=== PATIENT | female | born 1955 | race Caucasian/White ===

== ENCOUNTER 2022-02-06 08:50 | Emergency (ER) | payer OTHER ==
[2022-02-06] MEDS ORDERED: Ibuprofen 200 MG TAB ONE (09:36)
== END 2022-02-06 09:56 | disposition home or self-care (01) ==
LOC: BURERS 08:50
DX: S29.011A Strain of muscle and tendon of front wall of thorax, initial encounter (principal); S21.101A Unspecified open wound of right front wall of thorax without penetration into thoracic cavity, initial encounter; I10 Essential (primary) hypertension; E78.5 Hyperlipidemia, unspecified; E03.9 Hypothyroidism, unspecified; M32.9 Systemic lupus erythematosus, unspecified; J43.9 Emphysema, unspecified; X50.9XXA Other and unspecified overexertion or strenuous movements or postures, initial encounter; Z87.891 Personal history of nicotine dependence; Z79.899 Other long term (current) drug therapy
CPT/HCPCS: 71046

== ENCOUNTER 2022-02-08 14:47 | Emergency (ER) | payer OTHER ==
[2022-02-08] MEDS ORDERED: Ketorolac Tromethamine 30 MG/ML VIAL ONE (15:09)
== END 2022-02-08 15:28 | disposition home or self-care (01) ==
LOC: BURERS 14:47
DX: M94.0 Chondrocostal junction syndrome [Tietze] (principal); J43.9 Emphysema, unspecified; I10 Essential (primary) hypertension; E78.5 Hyperlipidemia, unspecified; Z87.891 Personal history of nicotine dependence
CPT/HCPCS: 96372; 99283; J1885

== ENCOUNTER 2023-03-18 17:13 | Emergency (ER) | payer OTHER | END 2023-03-18 17:56 | disposition home or self-care (01) | LOC: BURERS 17:13 | DX: S46.811A Strain of other muscles, fascia and tendons at shoulder and upper arm level, right arm, initial encounter (principal); S46.812A Strain of other muscles, fascia and tendons at shoulder and upper arm level, left arm, initial encounter; S43.492A Other sprain of left shoulder joint, initial encounter; S43.491A Other sprain of right shoulder joint, initial encounter; I10 Essential (primary) hypertension; E03.9 Hypothyroidism, unspecified; J44.9 Chronic obstructive pulmonary disease, unspecified; J43.9 Emphysema, unspecified; M32.9 Systemic lupus erythematosus, unspecified; X58.XXXA Exposure to other specified factors, initial encounter | CPT/HCPCS: 99283 ==

== ENCOUNTER 2024-01-26 18:34 | Emergency (ER) | payer OTHER, MEDICAID ==
[2024-01-26] MEDS ORDERED: Ipratropium/Albuterol 3 ML NEB ONE (19:08)
[2024-01-26] MEDS ORDERED: Ondansetron PF 4 MG/2 ML Vial ONE (19:08)
[2024-01-26 19:13] LABS: Hemoglobin 13.6 g/dL (12.0-16.0); Mean Corpuscular HGB CONC 33.3 g/dL (32.0-36.0); Mean Corpuscular Hemoglobin 28.1 pg (27.0-31.0); Mean Corpuscular Volume 84.5 fl (78.0-98.0); Mean Platelet Volume 5.5 fL (7.4-10.4); Platelet Count 279 10x3/uL (130-400); RBC Distribution Width 11.8 % (11.5-14.5); Red Blood Cell (RBC) Count 4.86 mill/uL (4.20-5.40); White Blood Cell (WBC) Count 6.7 10x3/uL (4.8-10.8)
[2024-01-26 19:25] LABS: Band 1 % (5-11); Eosinophils 5 % (0-10); Lymphocytes 27 % (21-51); MDiff Complete? YES; Monocytes 4 % (0-10); Neutrophil 61 % (42-75); Platelet Adequacy Comment Appears Adequate
[2024-01-26 19:29] LABS: ALT (SGPT) 16 U/L (8-55); AST (SGOT) 20 U/L (5-34); Albumin 4.1 g/dL (3.4-4.8); Alkaline Phosphatase 63 U/L (40-110); Anion Gap 14 mmol/L (10-20); BUN (Urea Nitrogen) 16 mg/dL (9.8-20.1); Bilirubin, Total 0.5 mg/dL (0.2-1.2); Calc. Creatinine Clearance 0 mL/min (70-130); Calcium 9.8 mg/dL (7.8-10.44); Carbon Dioxide 25 mmol/L (23-31); Chloride 107 mmol/L (98-107); Estimated GFR 73; Globulin 3.1 g/dL (2.4-3.5); Glucose 105 mg/dL (80-115); Potassium 3.8 mmol/L (3.5-5.1); Protein, Total 7.2 g/dL (5.8-8.1); Sodium 142 mmol/L (136-145)
[2024-01-26 19:30] LABS: Troponin I 0.018 ng/mL (< 0.028)
[2024-01-26] MEDS ORDERED: predniSONE 20 MG TAB ONE (19:53)
== END 2024-01-26 20:07 | disposition home or self-care (01) ==
LOC: BURERS 18:34
DX: J44.1 Chronic obstructive pulmonary disease with (acute) exacerbation (principal); I10 Essential (primary) hypertension
CPT/HCPCS: 71045; 80053; 83880; 84484; 85025; 93005; 94760; 96374; J2405; J7512; J7620

== ENCOUNTER 2025-05-03 08:10 | Emergency (ER) | payer OTHER, MEDICAID ==
[2025-05-03 08:40] LABS: Glucose, Urine (Dipstick) Negative (Negative); Leukocyte Negative (Negative); Protein, Urine (Dipstick) Negative (Neg-Trace); Specific Gravity, Urine 1.015 (1.005-1.030)
[2025-05-03 09:00] LABS: Bacteria/HPF Rare-Few HPF (None Seen); CAUTI Indications for Culture Dysuria,urgency,freq; RBC/HPF 0-3 HPF (0-3); WBC/HPF 0-3 HPF (0-3)
[2025-05-03 09:02] LABS: Urine Culture Reflex No No
[2025-05-03 09:08] LABS: Hematocrit 44.7 % (36.0-47.0); Hemoglobin 14.2 g/dL (12.0-16.0); Mean Corpuscular Hemoglobin 28.4 pg (27.0-31.0); Mean Corpuscular Volume 89.2 fl (78.0-98.0); Platelet Count 222 10x3/uL (130-400); Red Blood Cell (RBC) Count 5.01 mill/uL (4.20-5.40); White Blood Cell (WBC) Count 4.3 10x3/uL (4.8-10.8)
[2025-05-03] MEDS ORDERED: Albuterol 2.5 MG (3 mL) NEB ONE (09:20)
[2025-05-03] MEDS ORDERED: Ipratropium Bromide 2.5 ml Neb ONE (09:20)
[2025-05-03 09:28] LABS: MDiff Complete? YES; Nucleated RBC (Manual Ct) 3 % (0); Platelet Adequacy Comment Appears Adequate
[2025-05-03 09:31] LABS: ALT (SGPT) 23 U/L (Less than 34); AST (SGOT) 27 U/L (11-34); Albumin 3.9 g/dL (3.1-4.5); Alkaline Phosphatase 66 U/L (40-110); Anion Gap 14 mmol/L (10-20); BUN (Urea Nitrogen) 14 mg/dL (9.8-20.1); Bilirubin, Total 0.6 mg/dL (0.3-1.2); Calc. Creatinine Clearance 0 mL/min (70-130); Calcium 9.1 mg/dL (7.8-10.44); Carbon Dioxide 27 mmol/L (23-31); Chloride 105 mmol/L (98-107); Globulin 2.8 g/dL (2.4-3.5); Glucose 93 mg/dL (80-115); Lipase 19 U/L (8-78); Potassium 3.8 mmol/L (3.5-5.1); Sodium 142 mmol/L (136-145); Troponin I 0.019 ng/mL (< 0.028)
== END 2025-05-03 10:21 | disposition home or self-care (01) ==
LOC: BURERS 08:10
DX: J44.1 Chronic obstructive pulmonary disease with (acute) exacerbation (principal); E03.9 Hypothyroidism, unspecified; E78.5 Hyperlipidemia, unspecified; I10 Essential (primary) hypertension; Z79.899 Other long term (current) drug therapy
CPT/HCPCS: 71250; 74177; 80053; 81001; 83690; 83880; 84484; 85025; 87081; 87428; 87430; 93005; 96374; J2919; J7611; J7644